=== PATIENT | female | born 1995 | race Caucasian/White ===

== ENCOUNTER 2017-01-17 14:52 | Outpatient (CLI) | payer OTHER ==
[2017-01-17] MEDS ORDERED: LACTATED RINGERS 500 ML IV ONE (16:17)
[2017-01-17 16:47] VITALS: BP 102/55
[2017-01-17 18:03] LABS: Bilirubin,Urine NEG (Negative); Blood,Urine NEG (Negative); Ketones,Urine NEG (Negative); Leukocyte Esterase,Urine NEG (Negative); Mucus,Urine FEW /HPF; Nitrite,Urine NEG (Negative); Protein,Urine <15 mg/dL mg/dL (Negative); Urobilinogen,Urine < 2.0 mg/dL (<2.0); WBC,Urine < 1.0 /HPF (0.0-6.0)
[2017-01-17] MEDS ORDERED: ZOFRAN PO ONE (18:34)
== END 2017-01-17 19:15 | disposition home or self-care (01) ==
LOC: TRG 14:52
PROVIDERS: ATTEND Obstetrics & Gynecology
DX: O47.02 False labor before 37 completed weeks of gestation, second trimester (principal); Z3A.25 25 weeks gestation of pregnancy
CPT/HCPCS: 59025; 81001; J7120; Q0162